=== PATIENT | female | born 1960 | race Caucasian/White ===

== ENCOUNTER 2018-01-07 20:22 | Emergency (ER) | payer SELFPAY ==
[~2018-01-07] VITALS: Ht 167.6 cm; Wt 68.0 kg
[2018-01-07 20:32] VITALS: BP 162/99
== END 2018-01-07 21:00 | disposition left against medical advice (07) ==
LOC: EMS 20:23
DX: R51 Headache (principal); M54.2 Cervicalgia; M25.512 Pain in left shoulder; W20.8XXA Other cause of strike by thrown, projected or falling object, initial encounter; Y93.89 Activity, other specified; Y92.89 Other specified places as the place of occurrence of the external cause; Y99.8 Other external cause status; Z53.21 Procedure and treatment not carried out due to patient leaving prior to being seen by health care provider